=== PATIENT | male | born 1965 | race Caucasian/White ===

== ENCOUNTER → 2023-10-12 14:51 | Outpatient (REF) | payer BC, SELFPAY | LOC: HWRCS 14:51 | PROVIDERS: ATTENDING PHYSICIAN Internal Medicine Cardiovascular Disease; FAMILY PHYSICIAN Family Medicine | DX: I35.1 Nonrheumatic aortic (valve) insufficiency (principal); I10 Essential (primary) hypertension; R53.82 Chronic fatigue, unspecified | CPT/HCPCS: 93306 ==

== ENCOUNTER → 2024-09-15 09:28 | Outpatient (REF) | payer BC, SELFPAY | LOC: HWRCS 09:28 | PROVIDERS: ATTENDING PHYSICIAN Student in an Organized Health Care Education/Training Program; FAMILY PHYSICIAN Family Medicine | DX: I35.1 Nonrheumatic aortic (valve) insufficiency (principal) | CPT/HCPCS: 93306 ==

== ENCOUNTER → 2024-10-02 10:47 | Outpatient (REF) | payer BC, SELFPAY | LOC: RAD 10:47 | PROVIDERS: ATTENDING PHYSICIAN Student in an Organized Health Care Education/Training Program; FAMILY PHYSICIAN Family Medicine | DX: I77.810 Thoracic aortic ectasia (principal) | CPT/HCPCS: 71275; Q9967 ==